=== PATIENT | male | born 1995 | race Caucasian/White ===

== ENCOUNTER 2019-10-10 08:01 | Emergency (ER) | payer BC ==
[~2019-10-10] VITALS: Ht 190.5 cm; Wt 99.9 kg
[2019-10-10] MEDS ORDERED: NOHOMEMEDICATIONS (08:12)
[2019-10-10] MEDS ORDERED: KEFLEX500 M1 PO (09:37)
[2019-10-10 09:51] VITALS: BP 132/86
== END 2019-10-10 09:51 | disposition home or self-care (01) ==
LOC: M.ERS 08:01
DX: S61.211A Laceration without foreign body of left index finger without damage to nail, initial encounter (principal); Z88.0 Allergy status to penicillin; W26.0XXA Contact with knife, initial encounter; Y93.89 Activity, other specified; Y92.89 Other specified places as the place of occurrence of the external cause; Y99.8 Other external cause status